=== PATIENT | female | born 1955 | race Caucasian/White ===

== ENCOUNTER → 2018-08-30 | Day surgery (SDC) | payer MEDICARE, OTHER ==
[~2018-08-30] MED LIST: Propofol 200 MG/20 ML SDV IV ONE
[2018-08-30] MEDS: Lactated Ringers 1,000 ML IV SCH (08:22)
[2018-08-30 10:36] VITALS: BP 107/57
--- NOTE | 2018-08-30 13:56 | OR ---
DATE OF OPERATION: 08/30/2018 PREOPERATIVE DIAGNOSIS: SCREENING COLONOSCOPY. POSTOPERATIVE DIAGNOSIS: SCREENING COLONOSCOPY. SURGEON: Janusz Fung MD PROCEDURE: COLONOSCOPY. ANESTHESIA: REGISTERED PHLEBOTOMIST PART TIME. COMPLICATIONS: None. SPECIMEN: None. FINDINGS: 1. Full length colonoscopy. 2. Poor prep. RECOMMENDATIONS: Follow up routine colonoscopy every 10 years. INDICATIONS: The patient was in for welcome to Medicare Physical. She is due for a screening colonoscopy. DESCRIPTION OF PROCEDURE: The patient was prepped and draped, placed in the left lateral decubitus position. A lubricated Olympus colonoscope was inserted and easily advanced to the cecum. Direct visualization of the ileocecal valve and appendiceal orifice was accomplished. Bowel prep was marginal and there was a lot of stool, we actually suctioned out couple liters worth of stool, and some areas were just impossible to visualize, most notably the rectal vault and the cecum. Scattered areas throughout were also difficult to see, so flat and smaller lesions would definitely have potentially missed. Throughout the length of the colon, I could not find any obvious signs of polyps, mass, ulceration, or bleeding sites. No vascular abnormalities or signs of colitis. No significant diverticula. The rectal vault was hard to see, was very shallow and I could not retroflex and get a view of the perianal region in its entirety. Upon withdrawal, I could not see any obvious lesions. However, air was suctioned as best as possible. Scope removed without complication. JUANJO/PAT /[id number]
== END ==
LOC: CC.SDS 08:03
PROVIDERS: ATTEND Family Medicine
DX: Z12.11 Encounter for screening for malignant neoplasm of colon (principal); E10.9 Type 1 diabetes mellitus without complications; E78.00 Pure hypercholesterolemia, unspecified; Z87.891 Personal history of nicotine dependence; Z79.82 Long term (current) use of aspirin; Z79.4 Long term (current) use of insulin; Z79.899 Other long term (current) drug therapy; Z88.8 Allergy status to other drugs, medicaments and biological substances
CPT/HCPCS: 82962; J2704; J7120

== ENCOUNTER 2019-10-19 01:12 | Emergency (ER) | payer MEDICARE, OTHER ==
[2019-10-19] MEDS ORDERED: Cyclobenzaprine 10 MG Tab PO ONE (01:13)
[2019-10-19] MEDS ORDERED: Ketorolac 10 MG Tab PO ONE (01:13)
[2019-10-19 01:19] VITALS: BP 166/91; PULSE 80
--- NOTE | 2019-10-19 01:24 | EDM.PDOC ---
ED HPI GENERAL MEDICAL PROBLEM - General Chief Complaint: General Stated Complaint: fall Time Seen by Provider: 10/19/19 01:14 Source of Information: Reports: Patient, EMS, Family History Limitations: Reports: No Limitations - History of Present Illness INITIAL COMMENTS - FREE TEXT/NARRATIVE: Patient to the emergency department by EMS where she was at home and she slipped and fell in her kitchen the patient advised that she just lost her balance she did not hit her head and there was no loss of consciousness the patient denies any upper mid or lower back pain she denies any hip or pelvis pain she denies any upper or lower extremity pain she only complains of some mild pain to the left side of her mid neck area. There is no numbness or tingling. The patient denies any abdominal pain there is no nausea no vomiting she also denies any problems ambulating, the patient's GCS is 4-5-6. This is not a trauma code. Onset: Today Duration: Minutes: Location: Reports: Neck Quality: Reports: Ache Improves with: Reports: None Worsens with: Reports: Movement Context: Reports: Trauma Associated Symptoms: Reports: No Other Symptoms. Denies: Confusion, Chest Pain , Headaches, Nausea/Vomiting, Shortness of Breath, Syncope, Weakness Treatments ACTUARIAL ANALYST: Reports: Spinal Immobilization Left Posterior Neck Pain Score (Numeric/FACES): 3 - Related Data Allergies Allergy/AdvReac Type Severity Reaction Status Date / Time diphenhydramine Allergy Itching Verified 10/19/19 01:20 [From Dario] Home Meds: Home Meds Insulin Glarg,Human.Rec.Analog [Lantus] 15 units SQ QAM 02/28/17 [History] Insulin Lispro Prot/Lispro [HumaLOG Mix 75-25] 2 - 4 unit SQ TIDMEALS 02/28/17 [ History] atorvaSTATin [Lipitor] 40 mg PO BEDTIME 02/28/17 [History] Aspirin [Halfprin] 81 mg PO BEDTIME 08/28/18 [History] Losartan [Cozaar] 50 mg PO BEDTIME 08/28/18 [History] Calcium Carbonate/Vitamin D3 [Calcium 1,000 + D3 Caplet] 1 tab PO BID 09/26/18 [ History] Denosumab [Prolia] 60 mg SQ Q6M 03/27/19 [History] Methocarbamol [Robaxin] 500 mg PO TID 10 Days #30 tab 10/19/19 [Rx] Past Medical History Cardiovascular History: Reports: High Cholesterol, Hypertension Endocrine/Metabolic History: Reports: Diabetes, Type II - Past Surgical History Musculoskeletal Surgical History: Reports: Hip Replacement, Shoulder Surgery, Other (See Below) ED ROS GENERAL - Review of Systems Review Of Systems: See Below Constitutional: Reports: No Symptoms HEENT: Reports: No Symptoms. Denies: Ear Pain, Nose Pain, Throat Pain, Vision Change Respiratory: Reports: No Symptoms. Denies: Shortness of Breath Cardiovascular: Reports: No Symptoms. Denies: Chest Pain Endocrine: Reports: No Symptoms GI/Abdominal: Reports: No Symptoms. Denies: Abdominal Pain, Nausea, Vomiting : Reports: No Symptoms Musculoskeletal: Reports: Neck Pain. Denies: Shoulder Pain, Arm Pain, Back Pain , Leg Pain Skin: Reports: No Symptoms. Denies: Bruising, Rash, Erythema Neurological: Reports: No Symptoms. Denies: Confusion, Dizziness, Headache, Numbness, Syncope, Tingling, Trouble Speaking, Difficulty Walking, Weakness, Change in Speech, Gait Disturbance Psychiatric: Reports: No Symptoms ED EXAM, GENERAL - Physical Exam Exam: See Below Exam Limited By: No Limitations General Appearance: Alert, WD/WN, No Apparent Distress Eye Exam: Bilateral Eye: EOMI Ears: Normal External Exam, Normal Canal, Hearing Grossly Normal, Normal TMs Ear Exam: Bilateral Ear: Auricle Normal, Canal Normal, TM normal Nose: Normal Inspection, Normal Mucosa Throat/Mouth: Normal Inspection, Normal Lips, Normal Oropharynx, Normal Voice, No Airway Compromise Head: Atraumatic, Normocephalic Neck: Normal Inspection, Supple, Full Range of Motion, Tender Lateral (Left side ) Respiratory/Chest: No Respiratory Distress, Lungs Clear, Normal Breath Sounds, Chest Non-Tender Cardiovascular: Normal Peripheral Pulses, Regular Rate, Rhythm, No Murmur Peripheral Pulses: 2+: Radial (L), Radial (R) GI/Abdominal: Soft, Non-Tender Back Exam: Normal Inspection, Full Range of Motion. No: Paraspinal Tenderness, Vertebral Tenderness Extremities: Normal Inspection, Normal Range of Motion, Non-Tender, Normal Capillary Refill Neurological: Alert, Oriented, Normal Cognition, Normal Gait, No Motor/Sensory Deficits Psychiatric: Normal Affect, Normal Mood Skin Exam: Warm, Dry, Intact, Normal Color Course - Vital Signs Text/Narrative:: The patient was evaluated in the emergency department x-rays of cervical spine was obtained and a preliminary reading by this clinical writer shows significant multi- level degenerative changes. However, there is no prevertebral soft tissue swelling and no definite cortical interruptions. The radiology reading is still pending. The patient will be discharged home she will be given Robaxin 500 mg 3 times daily for 10 days, the patient will also be given a take-home dose of ketorolac 10 mg 1 tablet 3 times daily as needed. The patient will be advised to follow-up family doctor this week and return emergency department sooner if worsening problems Last Recorded V/S: Last Vital Signs Temp 35.6 C 10/19/19 01:14 Pulse 80 10/19/19 01:14 Resp 16 10/19/19 01:14 BP 166/91 H 10/19/19 01:14 Pulse Ox 99 10/19/19 01:14 - Orders/Labs/Meds Orders: Active Orders 24 hr Category Date Time Status Cervical Spine Min 4V [CR] Stat Exams 10/19/19 01:20 Ordered Meds: Medications Discontinued Medications Generic Name Dose Route Start Last Admin Trade Name Freq PRN Reason Stop Dose Admin Cyclobenzaprine HCl 1 packet 10/19/19 01:53 Take Home: Cyclobenzaprine 10 Mg, 4 Tab Pack PO 10/19/19 01:54 ONETIME ONE Ketorolac Tromethamine 1 packet 10/19/19 01:53 Take Home: Ketorolac 10 Mg, 4 Tab Pack PO 10/19/19 01:54 ONETIME ONE Departure - Departure Time of Disposition: 01:48 Disposition: Home, Self-Care 01 Condition: Good Clinical Impression: Fall, Repetitive strain injury of cervical spine - Discharge Information *PRESCRIPTION DRUG MONITORING PROGRAM REVIEWED*: Not Applicable *COPY OF PRESCRIPTION DRUG MONITORING REPORT IN PATIENT EUN: Not Applicable Prescriptions: Methocarbamol [Robaxin] 500 mg PO TID 10 Days #30 tab Instructions: Cervical Sprain, [id number] Forms: ED Department Discharge Additional Instructions: Rest Increase fluid Robaxin 500 mg 3 times a day for 10 days Alternate Tylenol Motrin as needed for pain Follow-up family doctor this week, call Sunday for an appointment time Return to emergency department sooner if worsening problems - Problem List & Annotations (1) Fall SNOMED Code(s): 8861785, 145281564 Code(s): W19.XXXA - UNSPECIFIED FALL, INITIAL ENCOUNTER Status: Acute Priority: Medium Qualifiers: Encounter type: initial encounter Qualified Code(s): W19.XXXA - Unspecified fall, initial encounter (2) Repetitive strain injury of cervical spine SNOMED Code(s): 121897169, 089977053 Code(s): S16.1XXA - STRAIN OF MUSCLE, FASCIA AND TENDON AT NECK LEVEL, INIT Status: Acute Priority: Medium Qualifiers: Encounter type: initial encounter Qualified Code(s): S16.1XXA - Strain of muscle, fascia and tendon at neck level, initial encounter - Problem List Review Problem List Initiated/Reviewed/Updated: Yes - My Orders Last 24 Hours: My Active Orders 10/19/19 01:20 Cervical Spine Min 4V [CR] Stat - Assessment/Plan Last 24 Hours: My Active Orders 10/19/19 01:20 Cervical Spine Min 4V [CR] Stat Plan: As above, the patient's GCS is 4-5-6. The patient's family is here to drive her home.
[2019-10-19] MEDS ORDERED: Take Home: Cyclobenzaprine 10 MG Tab, 4 Tab Pack PO ONE (01:53)
[2019-10-19] MEDS ORDERED: Take Home: Ketorolac 10 MG Tab, 4 Tab Pack PO ONE (01:53)
== END 2019-10-19 02:02 | disposition home or self-care (01) ==
LOC: CC.ED 01:12
DX: S16.1XXA Strain of muscle, fascia and tendon at neck level, initial encounter (principal); I10 Essential (primary) hypertension; E11.9 Type 2 diabetes mellitus without complications; Z79.4 Long term (current) use of insulin; Z79.82 Long term (current) use of aspirin; Z79.899 Other long term (current) drug therapy; Z88.8 Allergy status to other drugs, medicaments and biological substances; W01.0XXA Fall on same level from slipping, tripping and stumbling without subsequent striking against object, initial encounter; Y92.000 Kitchen of unspecified non-institutional (private) residence as the place of occurrence of the external cause
CPT/HCPCS: 72050; 99283; 99283-25; A9270-GY

== ENCOUNTER 2020-09-29 14:23 | Emergency (ER) | payer MEDICARE, OTHER ==
[2020-09-29 14:54] LABS: CHLORIDE,CL 98 mEq/L (98-106); SODIUM,NA 134 mEq/L (136-145)
[2020-09-29 15:06] VITALS: BP 118/60; PULSE 71
--- NOTE | 2020-09-29 15:19 | EDM.PDOC ---
ED HPI GENERAL MEDICAL PROBLEM - General Chief Complaint: Chest Pain Stated Complaint: Left arm pain Time Seen by Provider: 09/29/20 14:59 Source of Information: Reports: Patient History Limitations: Reports: No Limitations - History of Present Illness INITIAL COMMENTS - FREE TEXT/NARRATIVE: Sushila is a 65 year old female who presents to ER with complaints of left side pain that radiates around her back. She states the pain started last evening but is now pain free. Was concerned about being possible heart related. She denies any shortness of breath. No nausea/diaphoresis. States the pain was sharp in the left side and along the scapular bone. Denies any rash. No fevers. History of diabetes/smoker. Onset: Gradual Duration: Hour(s):, Improving Location: Reports: Chest Quality: Reports: Ache Severity: Moderate Improves with: Reports: None Associated Symptoms: Reports: Chest Pain. Denies: Confusion, Cough, Fever/Chills, Headaches, Loss of Appetite, Malaise, Nausea/Vomiting, Shortness of Breath, Syncope, Weakness - Related Data Allergies Allergy/AdvReac Type Severity Reaction Status Date / Time diphenhydramine Allergy Itching Verified 09/29/20 14:44 [From Benadryl] Home Meds: Home Meds Insulin Glarg,Human.Rec.Analog [Lantus] 15 units SQ QAM 02/28/17 [History] Insulin Lispro Prot/Lispro [HumaLOG Mix 75-25] 2 - 4 unit SQ TIDMEALS 02/28/17 [History] atorvaSTATin [Lipitor] 40 mg PO BEDTIME 02/28/17 [History] Aspirin [Halfprin] 81 mg PO BEDTIME 08/28/18 [History] Losartan [Cozaar] 50 mg PO BEDTIME 08/28/18 [History] Calcium Carbonate/Vitamin D3 [Calcium 1,000 + D3 Caplet] 1 tab PO BID 09/26/18 [History] Denosumab [Prolia] 60 mg SQ Q6M 03/27/19 [History] Past Medical History Cardiovascular History: Reports: High Cholesterol, Hypertension Endocrine/Metabolic History: Reports: Diabetes, Type II - Past Surgical History Neurological Surgical History: Reports: Lumbar Spine Musculoskeletal Surgical History: Reports: Hip Replacement, Shoulder Surgery, Other (See Below) Social & Family History - Tobacco Use Tobacco Use Status *Q: Current Every Day Tobacco User Years of Tobacco use: 2 Packs/Tins Daily: 0.5 - Caffeine Use Caffeine Use: Reports: Coffee - Alcohol Use Days Per Week of Alcohol Use: 4 Number of Drinks Per Day: 3 Total Drinks Per Week: 12 - Recreational Drug Use Recreational Drug Use: No ED ROS GENERAL - Review of Systems Review Of Systems: See Below Constitutional: Denies: Fever, Chills, Malaise, Weakness, Fatigue, Decreased Appetite HEENT: Denies: Ear Pain, Rhinitis, Sinus Problem, Throat Pain Respiratory: Denies: Shortness of Breath, Cough Cardiovascular: Denies: Chest Pain, Lightheadedness Endocrine: Denies: Fatigue GI/Abdominal: Denies: Abdominal Pain, Nausea, Vomiting : Reports: No Symptoms Musculoskeletal: Reports: Shoulder Pain Skin: Reports: No Symptoms Neurological: Reports: No Symptoms Psychiatric: Reports: No Symptoms ED EXAM, GENERAL - Physical Exam Exam: See Below Exam Limited By: No Limitations General Appearance: Alert, WD/WN, No Apparent Distress Ears: Normal External Exam, Normal TMs Nose: Normal Inspection, Normal Mucosa, No Blood Throat/Mouth: Normal Inspection, Normal Oropharynx Head: Normocephalic Neck: Normal Inspection, Supple, Non-Tender Respiratory/Chest: No Respiratory Distress, Lungs Clear, Normal Breath Sounds Cardiovascular: Regular Rate, Rhythm GI/Abdominal: Normal Bowel Sounds, Soft, Non-Tender Extremities: Normal Inspection, No Pedal Edema Neurological: Alert, Oriented Skin Exam: Warm, Dry Course - Vital Signs Last Recorded V/S: Last Vital Signs Temp 97.7 F 09/29/20 14:27 Pulse 71 09/29/20 15:05 Resp 15 09/29/20 15:05 BP 118/60 09/29/20 15:05 Pulse Ox 96 09/29/20 15:05 - Orders/Labs/Meds Orders: Active Orders 24 hr Category Date Time Status Chest 2V [CR] Stat Exams 09/29/20 14:34 Taken Labs: Laboratory Tests 09/29/20 09/29/20 09/29/20 Range/Units 14:25 14:25 14:25 WBC 5.5 (5.0-10.0) 10^3/uL RBC 3.98 L (4.00-5.50) 10^6/uL Hgb 13.3 (12.0-16.0) g/dL Hct 39.4 (37.0-47.0) % MCV 99.0 H (82.0-94.0) fL MCH 33.4 H (27.0-32.0) pg MCHC 33.8 (33.0-38.0) g/dL RDW Coeff of Yvonne 11.8 (11.0-15.0) % Plt Count 262 (150-400) 10^3/uL Neut % (Auto) 62.8 (35-85) % Lymph % (Auto) 24.9 (10-55) % [place] % (Auto) 10.3 (0-16) % Eos % (Auto) 1.6 (0-5) % Baso % (Auto) 0.4 (0-3) % Neut # (Auto) 3.48 (1.80-7.00) 10^3/uL Lymph # (Auto) 1.38 (1.00-4.80) 10^3/uL [place] # (Auto) 0.57 (0.00-0.80) 10^3/uL Eos # (Auto) 0.09 (0.00-0.45) 10^3/uL Baso # (Auto) 0.02 10^3/uL PT 10.9 (9.7-12.3) SEC INR 1.08 (0.92-1.18) Sodium 134 L (136-145) mEq/L Potassium 4.2 (3.5-5.0) mEq/L Chloride 98 (98-106) mEq/L Carbon Dioxide 30 (21-32) mmol/L BUN 9 (7-18) mg/dL Creatinine 0.6 (0.6-1.0) mg/dL Est Cr Clr Drug Dosing 88.48 mL/min Estimated GFR (MDRD) > 60 (>=60) mL/min Glucose 209 H (75-99) mg/dL Calcium 8.7 (8.4-10.1) mg/dL Total Bilirubin 0.5 (0.0-1.0) mg/dL AST 20 (15-37) U/L ALT 28 (12-78) U/L Alkaline Phosphatase 83 (46-116) U/L Lactate Dehydrogenase 174 (100-190) U/L Creatine Kinase 44 (21-215) U/L Troponin I < 0.017 (0.00-0.06) ng/mL Total Protein 7.1 (6.4-8.2) g/dL Albumin 3.9 (3.4-5.0) g/dL Lipase 93 (73-393) U/L - Re-Assessments/Exams Free Text/Narrative Re-Assessment/Exam: 09/29/20 Lab results are all negative. EKG shows NSR. discussed possible source of pain being musculoskeletal, possibly start of Shingles or if cardiac in nature, may need further exam or work up. Departure - Departure Time of Disposition: 15:18 Disposition: Home, Self-Care 01 Condition: Good Clinical Impression: Atypical chest pain Instructions: Chest Wall Pain, [id number] Referrals: PCP,Unobtain [Primary Care Provider] - Forms: ED Department Discharge Additional Instructions: 1. Rest 2. Tylenol or ibuprofen for any discomfort 3. If pain returns or is associated with any other symptoms, ie. shortness of breath, nausea, diaphoresis, rash, please call or present back for reevaluation Sepsis Event Note (ED) - Evaluation Sepsis Screening Result: No Definite Risk - Focused Exam Vital Signs: Vital Signs Temp Pulse Resp BP Pulse Ox 09/29/20 15:05 71 15 118/60 96 09/29/20 14:27 97.7 F 78 20 160/76 H 96 - My Orders Last 24 Hours: My Active Orders 09/29/20 14:34 Chest 2V [CR] Stat - Assessment/Plan Last 24 Hours: My Active Orders 09/29/20 14:34 Chest 2V [CR] Stat
== END 2020-09-29 15:25 | disposition home or self-care (01) ==
LOC: CC.ED 14:23
DX: R07.89 Other chest pain (principal); E78.00 Pure hypercholesterolemia, unspecified; I10 Essential (primary) hypertension; E11.9 Type 2 diabetes mellitus without complications; F17.210 Nicotine dependence, cigarettes, uncomplicated; Z79.82 Long term (current) use of aspirin; Z79.4 Long term (current) use of insulin; Z79.899 Other long term (current) drug therapy; Z88.8 Allergy status to other drugs, medicaments and biological substances
CPT/HCPCS: 36415; 71046; 80053; 82550; 83615; 83690; 84484; 85025; 85610; 93005; 93010; 99284; 99285-25